=== PATIENT | male | born 1935 | race Caucasian/White ===

== ENCOUNTER 2018-02-27 11:23 | Emergency (ER) | payer MEDICARE, OTHER, SELFPAY ==
[2018-02-27 11:30] VITALS: BMI 30.9
[2018-02-27 11:31] VITALS: BP 158/67; PULSE 74; RESP 17; TEMP 36.1; O2SAT 99
--- NOTE | 2018-02-27 11:38 | PC.NURSE ---
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 Has 7 cardiac stents.
--- NOTE | 2018-02-27 12:08 | ED.EXTPRO ---
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 He has had 1 in the right leg in the past and is on warfarin. He states that a couple of days ago, he started to have atypical pain on the inside border of the calf area that can radiate up behind the side of the knee. He states this is a dull ache, has not kept him from activity. He has been taking his warfarin. He states that he has had just a little bit of swelling in that leg. He states that this is just not quite normal, so thought he should have it checked out. He denies any trauma, pain in the ankle or knee. He denies any chest pain, dyspnea, nausea, or other new symptoms today. Related Data Home Medications Medication Instructions Recorded Confirmed lisinopril 10 mg PO Q DAY #0 07/26/10 02/27/18 aspirin 81 mg PO QPM #0 09/11/10 02/27/18 furosemide 40 mg PO QDAY #0 11/23/12 02/27/18 aspirin-sod bicarb-citric acid 0.5 tab PO QPM 02/27/18 02/27/18 [Camila-[place]iche[place] Original] nitrofurantoin macrocrystal 1 cap PO BID 02/27/18 02/27/18 warfarin 5 mg PO QPM 02/27/18 02/27/18 Allergies Allergy/AdvReac Type Severity Reaction Status Date / Time acetaminophen [ACETAMINOPHEN] Allergy Unknown Verified 02/27/18 11:37 atorvastatin [ATORVASTATIN] Allergy Unknown Verified 02/27/18 11:37 clopidogrel [CLOPIDOGREL] Allergy Unknown Verified 02/27/18 11:37 ibuprofen [IBUPROFEN] Allergy Unknown Verified 02/27/18 11:37 lovastatin [LOVASTATIN] Allergy Unknown Verified 02/27/18 11:37 prednisolone Allergy Unknown Verified 02/27/18 11:37 prednisone [PREDNISONE] Allergy Unknown Verified 02/27/18 11:37 simvastatin [SIMVASTATIN] Allergy Unknown Verified 02/27/18 11:37 Sulfa (Sulfonamide Allergy Unknown Verified 02/27/18 11:37 Antibiotics) [SULFA (SULFONAMIDE ANTIBIOTICS)] triamcinolone [TRIAMCINOLONE] Allergy Unknown Verified 02/27/18 11:37 Review of Systems <Christie Jaeger PA-C - Last Filed: 02/27/18 21:37> Review of Systems All systems reviewed & are unremarkable except as noted in HPI and below Exam <ALEJANDRA Fishman Last Filed: 02/27/18 21:37> Initial Vital Signs Initial Vital Signs: Vital Signs Temperature 97.0 F L 02/27/18 11:31 Pulse Rate 74 02/27/18 11:31 Respiratory Rate 17 02/27/18 11:31 Blood Pressure 158/67 H 02/27/18 11:31 Pulse Oximetry 99 02/27/18 11:31 GENERAL APPEARANCE: Patient sitting comfortably, in no distress. NECK/THYROID: Neck supple, no JVD. LUNGS: Clear to auscultation bilaterally. HEART: Regular rate and rhythm with II/ systolic murmur heard best at USB, normal S1, S2, no S3 or S4. ABDOMEN: Soft, NT, ND, + BS x 4 quadrants EXTREMITIES: No cyanosis, trace pitting on the left, none on the right. Small varicosities noted. Mild tenderness at the left medial border of the left calf and rock, no posterior calf or popliteal fossa tenderness. Ft are warm and pink NEUROLOGIC: Alert and oriented, normal speech, and coordination. <DO Zana Langley Last Filed: 02/28/18 07:02> Initial Vital Signs Initial Vital Signs: Vital Signs Temperature 97.0 F L 02/27/18 11:31 Pulse Rate 74 02/27/18 11:31 Respiratory Rate 17 02/27/18 11:31 Blood Pressure 158/67 H 02/27/18 11:31 Pulse Oximetry 99 02/27/18 11:31 Course <ALEJANDRA Fishman Last Filed: 02/27/18 21:37> Orders Ordered: ED Orders 02/27/18 12:42 Prothrombin Time INR Stat Vital Signs - 8 hr 02/27/18 11:31 Temperature 97.0 F L Pulse Rate 74 Respiratory Rate 17 Blood Pressure [Right Arm] 158/67 H Pulse Oximetry 99 <DO Zana Langley Last Filed: 02/28/18 07:02> Orders Ordered: ED Orders 02/27/18 12:42 Prothrombin Time INR Stat Vital Signs - 8 hr 02/27/18 11:31 Temperature 97.0 F L Pulse Rate 74 Respiratory Rate 17 Blood Pressure [Right Arm] 158/67 H Pulse Oximetry 99 MDM - Extremity (Nontraumatic) <Christie Jaeger PA-C - Last Filed: 02/27/18 21:37> Lab Data Lab Results 02/27/18 Range/Units 12:42 PT 35.9 H (10.1-12.7) SECONDS INR 3.2 H (0.9-1.3) Imaging Data Venous US: Radiologist's impression: [place] [address] Ultrasound Report Signed Patient: Kalin Oliver#: [id number] : [id number]:[id number] Age/Sex: 82 / MDate of Service: 02/27/18 Loc: ED Accession Number: [id number] Procedure: US periph venous low extrem lt Ordering Provider: Christie Jaeger P.A-C PROCEDURE: US PERIPH VENOUS LOW EXTREM LT INDICATIONS: PAIN TECHNIQUE: Real-time imaging, as well as color and pulse Doppler interrogation, were performed of the lower extremity deep veins from the inguinal ligament to the popliteal fossa. COMPARISON: None. FINDINGS: The deep veins are normally compressible, and free of intraluminal thrombus. Color and pulse Doppler demonstrate normal phasic intraluminal flow. There is normal augmentation response to distal compression maneuver. IMPRESSION: No evidence of left lower extremity deep vein thrombosis. Dictated by: Nolan Mckenna M.D. on 02/27/2018 at 11:40 Approved by: Nolan Mckenna M.D. on 02/27/2018 at 11:48 <DO Zana Langley Last Filed: 02/28/18 07:02> Lab Data Lab Results 02/27/18 Range/Units 12:42 PT 35.9 H (10.1-12.7) SECONDS INR 3.2 H (0.9-1.3) Discharge Plan Departure Patient Disposition: Home Clinical Impression: Lower extremity pain, left Discharge Date/Time: 02/27/18 13:35 Interventions: ED Discharge Assessment Last Done: 02/27/18 13:34 Instructions: DI for Calf Muscle Strain Activity Restrictions/Additional Instructions: There is no evidence of a blood clot on your ultrasound today, and your warfarin level is on the high side which also makes it much less likely that you have another blood clot in your leg. Based on where the pain is today I suspect that this is due to muscle soreness and strain. Please wear supportive shoes (even while in the house since you were standing on a hard surface for some time before this started). You can take over the counter tylenol, and also try topical medicine such as Marcos Martins or Capsacin rubs, or patches such as 4% lidocaine or menthol (all available ove the counter). Return if you have any acutely worsening symptoms or new symptoms such as chest pain or difficulty breathing. Please follow up with your PCP as you have already planned next week to recheck this as well as your INR. Since it was on the high side today, please resume eating more dark greens as you have planned Prescriptions: No Action lisinopril 10 mg Tablet 10 mg PO Q DAY Qty: 0 RF: 0 aspirin 81 mg Tablet,Delayed Release (Dr/Ec) 81 mg PO QPM Qty: 0 RF: 0 furosemide 40 MG tablet 40 mg PO QDAY Qty: 0 RF: 0 nitrofurantoin macrocrystal 50 mg capsule 1 cap PO BID RF: 0 warfarin 5 mg Tablet 5 mg PO QPM RF: 0 aspirin-sod bicarb-citric acid [Camila-[place] Original] 325-1,916-1,000 mg Tablet, Effervescent 0.5 tab PO QPM RF: 0 Referrals: Tacho Baugh MD [Non-Staff] - <Wilian Connelly DO - Last Filed: 02/28/18 07:02> Cosign ED Attending Sd Attestation: I was available for consultation during this patient's emergency department encounter
--- NOTE | 2018-02-27 12:29 | ED_ITS ---
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 He has had 1 in the right leg in the past and is on warfarin. He states that a couple of days ago, he started to have atypical pain on the inside border of the calf area that can radiate up behind the side of the knee. He states this is a dull ache, has not kept him from activity. He has been taking his warfarin. He states that he has had just a little bit of swelling in that leg. He states that this is just not quite normal, so thought he should have it checked out. He denies any trauma, pain in the ankle or knee. He denies any chest pain, dyspnea, nausea, or other new symptoms today. Related Data Home Medications Medication Instructions Recorded Confirmed lisinopril 10 mg PO Q DAY #0 07/26/10 02/27/18 aspirin 81 mg PO QPM #0 09/11/10 02/27/18 furosemide 40 mg PO QDAY #0 11/23/12 02/27/18 aspirin-sod bicarb-citric acid 0.5 tab PO QPM 02/27/18 02/27/18 [Camila-Michelet Original] nitrofurantoin macrocrystal 1 cap PO BID 02/27/18 02/27/18 warfarin 5 mg PO QPM 02/27/18 02/27/18 Allergies Allergy/AdvReac Type Severity Reaction Status Date / Time acetaminophen [ACETAMINOPHEN] Allergy Unknown Verified 02/27/18 11:37 atorvastatin [ATORVASTATIN] Allergy Unknown Verified 02/27/18 11:37 clopidogrel [CLOPIDOGREL] Allergy Unknown Verified 02/27/18 11:37 ibuprofen [IBUPROFEN] Allergy Unknown Verified 02/27/18 11:37 lovastatin [LOVASTATIN] Allergy Unknown Verified 02/27/18 11:37 prednisolone Allergy Unknown Verified 02/27/18 11:37 prednisone [PREDNISONE] Allergy Unknown Verified 02/27/18 11:37 simvastatin [SIMVASTATIN] Allergy Unknown Verified 02/27/18 11:37 Sulfa (Sulfonamide Allergy Unknown Verified 02/27/18 11:37 Antibiotics) [SULFA (SULFONAMIDE ANTIBIOTICS)] triamcinolone [TRIAMCINOLONE] Allergy Unknown Verified 02/27/18 11:37 Review of Systems <Christie Jaeger PA-C - Last Filed: 02/27/18 21:37> Review of Systems All systems reviewed & are unremarkable except as noted in HPI and below Exam <ALEJANDRA Fishman Last Filed: 02/27/18 21:37> Initial Vital Signs Initial Vital Signs: Vital Signs Temperature 97.0 F L 02/27/18 11:31 Pulse Rate 74 02/27/18 11:31 Respiratory Rate 17 02/27/18 11:31 Blood Pressure 158/67 H 02/27/18 11:31 Pulse Oximetry 99 02/27/18 11:31 GENERAL APPEARANCE: Patient sitting comfortably, in no distress. NECK/THYROID: Neck supple, no JVD. LUNGS: Clear to auscultation bilaterally. HEART: Regular rate and rhythm with II/ systolic murmur heard best at USB, normal S1, S2, no S3 or S4. ABDOMEN: Soft, NT, ND, + BS x 4 quadrants EXTREMITIES: No cyanosis, trace pitting on the left, none on the right. Small varicosities noted. Mild tenderness at the left medial border of the left calf and rock, no posterior calf or popliteal fossa tenderness. Ft are warm and pink NEUROLOGIC: Alert and oriented, normal speech, and coordination. <DO Zana Langley Last Filed: 02/28/18 07:02> Initial Vital Signs Initial Vital Signs: Vital Signs Temperature 97.0 F L 02/27/18 11:31 Pulse Rate 74 02/27/18 11:31 Respiratory Rate 17 02/27/18 11:31 Blood Pressure 158/67 H 02/27/18 11:31 Pulse Oximetry 99 02/27/18 11:31 Course <ALEJANDRA Fishman Last Filed: 02/27/18 21:37> Orders Ordered: ED Orders 02/27/18 12:42 Prothrombin Time INR Stat Vital Signs - 8 hr 02/27/18 11:31 Temperature 97.0 F L Pulse Rate 74 Respiratory Rate 17 Blood Pressure [Right Arm] 158/67 H Pulse Oximetry 99 <DO Zana Langley Last Filed: 02/28/18 07:02> Orders Ordered: ED Orders 02/27/18 12:42 Prothrombin Time INR Stat Vital Signs - 8 hr 02/27/18 11:31 Temperature 97.0 F L Pulse Rate 74 Respiratory Rate 17 Blood Pressure [Right Arm] 158/67 H Pulse Oximetry 99 MDM - Extremity (Nontraumatic) <Christie Jaeger PA-C - Last Filed: 02/27/18 21:37> Lab Data Lab Results 02/27/18 Range/Units 12:42 PT 35.9 H (10.1-12.7) SECONDS INR 3.2 H (0.9-1.3) Imaging Data Venous US: Radiologist's impression: [place] [address] Ultrasound Report Signed Patient: Kalin Oliver#: [id number] : 1935cct:[id number] Age/Sex: 82 / MDate of Service: 02/27/18 Loc: ED Accession Number: [id number] Procedure: US periph venous low extrem lt Ordering Provider: Christie Jaeger P.A-C PROCEDURE: US PERIPH VENOUS LOW EXTREM LT INDICATIONS: PAIN TECHNIQUE: Real-time imaging, as well as color and pulse Doppler interrogation, were performed of the lower extremity deep veins from the inguinal ligament to the popliteal fossa. COMPARISON: None. FINDINGS: The deep veins are normally compressible, and free of intraluminal thrombus. Color and pulse Doppler demonstrate normal phasic intraluminal flow. There is normal augmentation response to distal compression maneuver. IMPRESSION: No evidence of left lower extremity deep vein thrombosis. Dictated by: Nolan Mckenna M.D. on 02/27/2018 at 11:40 Approved by: Nolan Mckenna M.D. on 02/27/2018 at 11:48 <DO Zana Langley Last Filed: 02/28/18 07:02> Lab Data Lab Results 02/27/18 Range/Units 12:42 PT 35.9 H (10.1-12.7) SECONDS INR 3.2 H (0.9-1.3) Discharge Plan Departure Patient Disposition: Home Clinical Impression: Lower extremity pain, left Discharge Date/Time: 02/27/18 13:35 Interventions: ED Discharge Assessment Last Done: 02/27/18 13:34 Instructions: DI for Calf Muscle Strain Activity Restrictions/Additional Instructions: There is no evidence of a blood clot on your ultrasound today, and your warfarin level is on the high side which also makes it much less likely that you have another blood clot in your leg. Based on where the pain is today I suspect that this is due to muscle soreness and strain. Please wear supportive shoes (even while in the house since you were standing on a hard surface for some time before this started). You can take over the counter tylenol, and also try topical medicine such as Marcos Martins or Capsacin rubs, or patches such as 4 % lidocaine or menthol (all available ove the counter). Return if you have any acutely worsening symptoms or new symptoms such as chest pain or difficulty breathing. Please follow up with your PCP as you have already planned next week to recheck this as well as your INR. Since it was on the high side today, please resume eating more dark greens as you have planned Prescriptions: No Action lisinopril 10 mg Tablet 10 mg PO Q DAY Qty: 0 RF: 0 aspirin 81 mg Tablet,Delayed Release (Dr/Ec) 81 mg PO QPM Qty: 0 RF: 0 furosemide 40 MG tablet 40 mg PO QDAY Qty: 0 RF: 0 nitrofurantoin macrocrystal 50 mg capsule 1 cap PO BID RF: 0 warfarin 5 mg Tablet 5 mg PO QPM RF: 0 aspirin-sod bicarb-citric acid [Camila-[place] Original] 325-1,916-1,000 mg Tablet, Effervescent 0.5 tab PO QPM RF: 0 Referrals: Tacho Baugh MD [Non-Staff] - <Wilian Connelly DO - Last Filed: 02/28/18 07:02> Cosign ED Attending Sd Attestation: I was available for consultation during this patient's emergency department encounter
[2018-02-27 13:01] LABS: INR 3.2 (0.9-1.3); Prothrombin Time 35.9 SECONDS (10.1-12.7)
[2018-02-27 13:25] VITALS: BP 130/71; PULSE 70; RESP 14; O2SAT 98
== END 2018-02-27 13:35 | disposition home or self-care (01) ==
PROVIDERS: Emergency Provider Internal Medicine; Family Provider Family Medicine; PCP Internal Medicine
DX: M79.605 Pain in left leg (principal)
CPT/HCPCS: 36415; 85610; 93971; 99282; 99284

== ENCOUNTER 2018-03-18 08:26 | Emergency (ER) | payer MEDICARE, OTHER, SELFPAY ==
[2018-03-18 08:38] VITALS: BP 156/61; PULSE 72; RESP 20; TEMP 36.3; O2SAT 100; BMI 29.9
[2018-03-18 09:06] LABS: Add Manual Diff / Slide Review NO; Basophils Percent Auto 1.4 % (0-2); Eosinophils Percent Auto 1.5 % (2-4); Hematocrit 42.5 % (41-53); Hemoglobin 14.3 g/dL (13.5-17.5); Lymphocytes Percent Auto 20.4 % (25-40); Mean Corpuscular HGB Conc 33.6 % (30-36); Mean Corpuscular Hemoglobin 29.4 PG (26-34); Mean Corpuscular Volume 87.4 fL (80-100); Monocytes Percent Auto 10.1 % (3-14); Neutrophils Absolute Auto 4100 /uL (3000-5900); Neutrophils Percent Auto 66.6 % (50-75); Platelet Count 187 X10^3/uL (150-400); Red Blood Cell Count 4.86 X10^6/uL (4.5-5.9); Red Cell Distribution Width 15.4 % (11.6-14.8); White Blood Cell Count 6.2 X10^3/uL (4.5-11.0)
[2018-03-18 09:15] LABS: INR 2.9 (0.9-1.3); Prothrombin Time 31.7 SECONDS (10.1-12.7)
[2018-03-18 09:18] LABS: PTT Partial Thromboplastin Tim 40 SECONDS (26.4-36.2)
[2018-03-18 09:19] LABS: Alanine Aminotransferase 24 IU/L (21-72); Albumin Globulin Ratio 1.4 (1.0-2.8); Alkaline Phosphatase 71 U/L (38-126); Aspartate Aminotransferase 16 IU/L (17-59); Blood Urea Nitrogen 19 mg/dL (9-20); Carbon Dioxide 29 mmol/L (22-32); Chloride 104 mmol/L (98-107); Estimated Glomerular Filt Rate > 60.0 mL/min (>60); Globulin 2.9 g/dL (1.7-4.1); Glucose 116 mg/dL (80-110); HEMOLYSIS < 15 (0-50); Potassium 4.4 mmol/L (3.4-5.1); Sodium 139 mmol/L (137-145); Total Protein 6.9 g/dL (6.3-8.2)
[2018-03-18 09:51] VITALS: BP 126/71; PULSE 63; RESP 15; O2SAT 97
--- NOTE | 2018-03-18 15:27 | ED_ITS ---
HPI - GI Bleed General Chief complaint: GI Bleed Stated complaint: bleeding from the butt Time Seen by Provider: 03/18/18 08:40 Source: patient and family Mode of arrival: ambulatory Limitations: no limitations History of Present Illness HPI Narrative: 82-year-old former smoker on Coumadin for clots in his right lower extremity presents with a chief complaint of bright red blood, painless, per his rectum yesterday. He is not dizzy nor weak or lightheaded. He denies any chest pain or shortness of breath. He denies any fatigue or really any symptoms other than bright red blood. He denies any recent change in his Coumadin dosing. He states it has been quite sometime since he has had a colonoscopy. MD complaint: gross hematochezia Onset (ago): day(s) Severity: mild Context: medication/supplement use Associated symptoms: denies other symptoms Treatments Prior to Arrival: none Related Data Home Medications Medication Instructions Recorded Confirmed lisinopril 5 mg PO Q DAY #0 07/26/10 03/18/18 furosemide 20 mg PO QDAY #0 11/23/12 03/18/18 nitrofurantoin macrocrystal 1 cap PO BID 02/27/18 03/18/18 warfarin 5 mg PO QPM 02/27/18 03/18/18 Allergies Allergy/AdvReac Type Severity Reaction Status Date / Time acetaminophen [ACETAMINOPHEN] Allergy Unknown Verified 03/18/18 08:46 atorvastatin [ATORVASTATIN] Allergy Unknown Verified 03/18/18 08:46 clopidogrel [CLOPIDOGREL] Allergy Unknown Verified 03/18/18 08:46 ibuprofen [IBUPROFEN] Allergy Unknown Verified 03/18/18 08:46 lovastatin [LOVASTATIN] Allergy Unknown Verified 03/18/18 08:46 prednisolone Allergy Unknown Verified 03/18/18 08:46 prednisone [PREDNISONE] Allergy Unknown Verified 03/18/18 08:46 simvastatin [SIMVASTATIN] Allergy Unknown Verified 03/18/18 08:46 Sulfa (Sulfonamide Allergy Unknown Verified 03/18/18 08:46 Antibiotics) [SULFA (SULFONAMIDE ANTIBIOTICS)] triamcinolone [TRIAMCINOLONE] Allergy Unknown Verified 03/18/18 08:46 Review of Systems Review of Systems All systems reviewed & are unremarkable except as noted in HPI and below Constitutional Denies chills, Denies fever(s), Denies lethargy and Denies weakness Eyes Denies change in vision, Denies eye discharge, Denies irritation and Denies loss of vision ENT Ears, Nose, Mouth, and Throat: Denies change in voice, Denies neck pain and Denies sore throat Cardiovascular Denies chest pain, Denies irregular heart rhythm, Denies lightheadedness, Denies palpitations, Denies dyspnea, Denies dyspnea on exertion and Denies orthopnea Respiratory Denies cough, Denies dyspnea, Denies dyspnea on exertion and Denies wheezing Gastrointestinal Gastrointestinal: Denies abdominal pain, Reports hematochezia, Denies change in bowel habits, Denies diarrhea, Denies nausea and Denies vomiting Genitourinary Denies hematuria, Denies flank pain, Denies urinary incontinence and Denies urinary urgency Musculoskeletal Denies neck pain Integumentary/Breasts Denies pruritus, Denies erythema, Denies rash and Denies wounds Neurologic Denies confusion, Denies loss of vision and Denies weakness Psychiatric Denies anxiety, Denies confusion, Denies depression, Denies homicidal ideation and Denies suicidal ideation Endocrine Denies palpitations Hematologic/Lymphatic Denies easy bruising Allergic/Immunologic Denies wheezing [facility] Medical History CAD (coronary artery disease) (Chronic) HTN (hypertension) (Chronic) Heart murmur (Chronic) Hyperglycemia (Chronic) Osteoarthritis, hip, bilateral (Chronic) Weakness of right upper extremity (Chronic) Surgical History History of cervical spinal surgery (Chronic) Social History Smoking Status: Former smoker Exam Narrative Exam Narrative: Pleasant 82-year-old male in no obvious distress Initial Vital Signs Initial Vital Signs: Vital Signs Temperature 97.4 F L 03/18/18 08:38 Pulse Rate 72 03/18/18 08:38 Respiratory Rate 20 03/18/18 08:38 Blood Pressure 156/61 H 03/18/18 08:38 Pulse Oximetry 100 03/18/18 08:38 Const General: cooperative and well developed Nutritional Appearance: well nourished Orientation: alert, awake, oriented x3 and not confused HENMT Head: normocephalic and atraumatic Ears: external ears normal and TM's normal bilaterally Nose: external nose normal and No nasal discharge Face and sinus: sinuses nontender, face symmetric, no sinus tenderness and No dry mucous membranes Mouth: oral mucosae normal and moist mucous membranes Teeth and gingiva: dentition normal Throat: tonsils normal and uvula midline Eyes General: appearance normal, both eyes and all related structures Eyelids: eyelids normal Conjunctivae: conjunctivae normal Sclera: sclerae normal Pupils: PERRL EOM: EOM intact bilaterally Neck Neck: normal visual inspection, trachea midline, No lymphadenopathy, No midline deformity and No JVD Lymphatic: No lymphedema Chest Chest: normal inspection of the chest Resp Effort & Inspection: normal respiratory effort, able to speak in complete sentences, no respiratory distress and no use of accessory muscles Auscultation: clear to auscultation bilaterally, no rales, no rhonchi and no wheezes Cardio Rate: regular rate Rhythm: regular rhythm Heart Sounds: no click, no gallops, no murmurs and no rubs Pulses: normal peripheral pulses GI Inspection: non-distended Palpation: soft, no hepatosplenomegaly, No guarding, No pulsatile mass and No tender Auscultation: normal bowel sounds Rectal Exam: heme positive stool and other (Very minimal amount bright red blood noted on rectal exam) Back/Spine/Pelvis Back: No CVA tenderness Cervical Spine: cervical ROM normal and No pain with cervical ROM Thoracic/Lumbar Spine: thoracic and lumbar spine normal to inspection Skin General: no rashes or lesions noted, No jaundice and No petechiae Neuro General: alert, oriented x3, gait normal and no focal motor deficits Speech: speech normal Extrem General: full ROM, no clubbing, cyanosis or edema, no pedal edema and no calf tenderness Psych Appearance: well kempt Mental Status: mental status grossly normal Attitude: cooperative Thought Content: normal and suicidality Judgment: judgment good Course Orders Ordered: ED Orders 03/18/18 08:55 Complete Blood Count AUTO DIFF Stat Comprehensive Metabolic Panel Stat Partial Thromboplastin Time Stat Prothrombin Time INR Stat Type and Screen Stat Vital Signs - 8 hr 03/18/18 08:38 03/18/18 09:51 Temperature 97.4 F L Pulse Rate 72 63 Respiratory Rate 20 15 Blood Pressure 156/61 H 126/71 Pulse Oximetry 100 97 MDM - GI Bleed Lab Data Result diagrams: 03/18/18 08:55 03/18/18 08:55 Lab Results 03/18/18 03/18/18 03/18/18 Range/Units 08:55 08:55 08:55 WBC 6.2 (4.5-11.0) X10^3/uL RBC 4.86 (4.5-5.9) X10^6/uL Hgb 14.3 (13.5-17.5) g/dL Hct 42.5 (41-53) % MCV 87.4 (80-100) fL MCH 29.4 (26-34) PG MCHC 33.6 (30-36) % RDW 15.4 H (11.6-14.8) % Plt Count 187 (150-400) X10^3/uL Neut % (Auto) 66.6 (50-75) % Lymph % (Auto) 20.4 L (25-40) % Dent % (Auto) 10.1 (3-14) % Eos % (Auto) 1.5 L (2-4) % Baso % (Auto) 1.4 (0-2) % Neut # (Auto) 4100 (0609-2935) /uL PT 31.7 H (10.1-12.7) SECONDS INR 2.9 H (0.9-1.3) APTT 40 H (26.4-36.2) SECONDS Sodium 139 (137-145) mmol/L Potassium 4.4 (3.4-5.1) mmol/L Chloride 104 (98-107) mmol/L Carbon Dioxide 29 (22-32) mmol/L BUN 19 (9-20) mg/dL Creatinine 1.00 (0.66-1.25) mg/dL Estimated GFR > 60.0 (>60) mL/min BUN/Creatinine Ratio 19.0 (6-22) Glucose 116 H (80-110) mg/dL Calcium 9.0 (8.4-10.2) mg/dL Total Bilirubin 1.0 (0.2-1.3) mg/dL AST 16 L (17-59) IU/L ALT 24 (21-72) IU/L Alkaline Phosphatase 71 (38-126) U/L Total Protein 6.9 (6.3-8.2) g/dL Albumin 4.0 (3.5-5.0) g/dL Globulin 2.9 (1.7-4.1) g/dL Albumin/Globulin Ratio 1.4 (1.0-2.8) Blood Type Antibody Screen 03/18/18 Range/Units 08:55 WBC (4.5-11.0) X10^3/uL RBC (4.5-5.9) X10^6/uL Hgb (13.5-17.5) g/dL Hct (41-53) % MCV (80-100) fL MCH (26-34) PG MCHC (30-36) % RDW (11.6-14.8) % Plt Count (150-400) X10^3/uL Neut % (Auto) (50-75) % Lymph % (Auto) (25-40) % Dent % (Auto) (3-14) % Eos % (Auto) (2-4) % Baso % (Auto) (0-2) % Neut # (Auto) (4435-5110) /uL PT (10.1-12.7) SECONDS INR (0.9-1.3) APTT (26.4-36.2) SECONDS Sodium (137-145) mmol/L Potassium (3.4-5.1) mmol/L Chloride (98-107) mmol/L Carbon Dioxide (22-32) mmol/L BUN (9-20) mg/dL Creatinine (0.66-1.25) mg/dL Estimated GFR (>60) mL/min BUN/Creatinine Ratio (6-22) Glucose (80-110) mg/dL Calcium (8.4-10.2) mg/dL Total Bilirubin (0.2-1.3) mg/dL AST (17-59) IU/L ALT (21-72) IU/L Alkaline Phosphatase (38-126) U/L Total Protein (6.3-8.2) g/dL Albumin (3.5-5.0) g/dL Globulin (1.7-4.1) g/dL Albumin/Globulin Ratio (1.0-2.8) Blood Type AB Positive Antibody Screen Negative [facility] Narrative Medical decision making narrative: Patient had bright red blood per rectum yesterday very minimal ongoing today. He denies dizziness, weakness or lightheadedness. He has no pain. His INR and H&H is stable and exam is very reassuring. He will follow up closely. No alterations in Coumadin Discharge Plan Departure Patient Disposition: Home Clinical Impression: Bright red rectal bleeding Discharge Date/Time: 03/18/18 09:50 Interventions: ED Discharge Assessment Last Done: 03/18/18 09:51 Instructions: DI for Rectal Bleeding Activity Restrictions/Additional Instructions: *You have been diagnosed with [ mild rectal bleeding ] *What to do: *Take medications as directed: your bleeding is very mild, your vital signs are great, your labs are normal. In my opinion it would be riskier for you to alter your coumadin levels than it would be to just monitor this mild bleeding *Follow up with your primary care provider in 2-3 days, call for an appointment. Let them know you were seen in the Emergency Department and that we ask that you be seen in follow up *Return to ER if you should have any new, worsening or concerning symptoms , such as [ increased bleeding, abdominal pain, fatigue, dizziness, shortness of breath or other bothersome symptoms] Prescriptions: No Action lisinopril 10 mg Tablet 5 mg PO Q DAY Qty: 0 RF: 0 furosemide 40 MG tablet 20 mg PO QDAY Qty: 0 RF: 0 nitrofurantoin macrocrystal 50 mg capsule 1 cap PO BID RF: 0 warfarin 5 mg Tablet 5 mg PO QPM RF: 0 Referrals: Pepito Noguera MD [Primary Care Provider] -
== END 2018-03-18 09:50 | disposition home or self-care (01) ==
PROVIDERS: Emergency Provider Emergency Medicine; Family Provider Family Medicine; PCP Internal Medicine
DX: K62.5 Hemorrhage of anus and rectum (principal)
CPT/HCPCS: 36591; 80053; 85025; 85610; 85730; 86850; 86900; 86901; 99283

== ENCOUNTER → 2018-05-10 13:34 | Outpatient (CLI) | payer MEDICARE, OTHER, SELFPAY ==
--- NOTE | 2018-05-10 15:10 | PM.TREADMILL ---
Cardiac Stress Test Report Referral & Results Date Patient Seen: 05/10/18 Requesting provider: Marco Antonio Olsen Indication: Preop Rest ECG: Unremarkable Procedure Note: After both written and verbal informed consent the patient had an IV started by the diagnostic imaging RN and then was hooked up to the treadmill monitoring system and was then injected with the Elsa scan material. The Cardiolite was then immediately administered. The patient spent an additional 2-3 minutes being monitored. He experience maybe some funny symptoms in his abdomen but no other notable side effects from the Lexiscan or Cardiolite The patient had a normal response to all infused materials. Impression: Normal response as above Perfusion imaging to be reported separately Please note: Actual ECG tracings can be found in the PACS system.
--- NOTE | 2018-05-12 08:09 | DI.NM.S_ITS ---
DATE OF SERVICE: 05/10/2018 PROCEDURE: Pharmacologic perfusion study. INDICATIONS: Underlying coronary artery disease with multiple percutaneous coronary interventions (PCIs), including proximal LAD as well as RCA, posterolateral marginal branch, with underlying diabetes mellitus, hypertension, hyperlipidemia, and history of deep venous thrombosis (DVT). RADIOPHARMACEUTICAL: 25.0 mCi of technetium-99 Myoview IV was injected at stress, and 24.7 mCi of technetium-99 Myoview IV was injected at rest. CARDIAC STRESS: The patient underwent IV Lexiscan perfusion study under the supervision of an attending staff. The patient remained hemodynamically stable. No significant symptoms were reported. Baseline EKG revealed sinus rhythm with some nonspecific ST changed. Stress EKG did not reveal any obvious inducible ischemic changes. There were no significant arrhythmias. RAW DATA: There was increased subdiaphragmatic activity. GATED STUDY: Stress LV ejection fraction was 91%, and resting LV ejection fraction was 78% without any obvious wall motion abnormalities. No transient ischemic dilatation. TID ratio is 0.77, which is within normal limits. Resting end-diastolic volume was 77 mL. Lung/heart ratio is 0.41, which is within normal limits. MYOCARDIAL PERFUSION: Stress supine, resting supine, and stress prone images were compared to each other. It appears to be that the patient has a small- sized, very mild reversible ischemia involving base to mid anterior wall. I don't see any significant perfusion defect involving distal anterior wall, apex, or inferior wall or lateral wall. Septum appears to have normal perfusion, as well. CONCLUSION: This is a small-sized, very mild reversible ischemia involving base to mid anterior wall without any significant perfusion defect in distal LAD, apex, septum, right coronary artery distribution, or circumflex artery distribution. Ischemic burden is very small. Overall, LV function is preserved. No significant arrhythmias. No transient ischemic dilatation. Hence, this study appears to be low-risk. Clinical correlation is recommended. Kalin Oliver - MANUEL/ganesh/ts doc#: [id number]/job#: [id number] dd: 05/11/2018 12:48:00 dt: 05/12/2018 07:38:00 DICTATING MD/COPIES TO: Haylie Mcdaniel MD COPIES MNE: SAEID
== END ==
PROVIDERS: PCP Internal Medicine; Visit Provider Internal Medicine Cardiovascular Disease
DX: Z01.810 Encounter for preprocedural cardiovascular examination (principal); I25.10 Atherosclerotic heart disease of native coronary artery without angina pectoris
CPT/HCPCS: 78452; 93016; 93017; 93018; A9502; J2785